=== PATIENT | male | born 1990 | race Caucasian/White ===

== ENCOUNTER 2018-05-19 15:30 | Emergency (ER) | payer BC, OTHER ==
[2018-05-19] MEDS ORDERED: BUPIVACAINE 0.5% PF 10 ML VIAL SUBQ STA (17:07)
--- NOTE | 2018-05-19 18:09 | ED Physician Documentation ---
History of Present Illness - Stated complaint Stated Complaint: FACIAL LACERATION - Chief complaint Chief Complaint: Laceration - History obtained from History obtained from: Patient, Friend - History of Present Illness Timing: Today - Additonal information Additional information: 28-year-old male was using a hole saw to cut a hole in the soffit when the saw caught, torqued, and the saw cut his face on the left lower lip and chin. Review of Systems Constitutional: denies: Fever Eyes: denies: Decreased vision Ears: denies: Ear pain Nose: denies: Congestion Throat: denies: Sore throat Respiratory: denies: Cough GI: denies: Vomiting Skin: reports: Laceration (s) Musculoskeletal: denies: Neck pain, Back pain, Extremity pain PD PAST MEDICAL HISTORY - Past Medical History Past Medical History: Yes Other Past Medical History: idiopathic thrombopenia - Past Surgical History Past Surgical History: Yes Ortho: Other - Present Medications Home Medications: Ambulatory Orders Medication Instructions Recorded Confirmed No Known Home Medications 05/19/18 05/19/18 - Allergies Allergies/Adverse Reactions: Allergies Allergy/AdvReac Type Severity Reaction Status Date / Time tetnus Allergy Hives Uncoded 05/19/18 15:41 - Social History Does the pt smoke?: No Smoking Status: Never smoker Does the pt drink ETOH?: Yes ETOH Use: Beer Does the pt have substance abuse?: No - Immunizations Immunizations are current?: No Immunizations: Other immun not current - POLST Patient has POLST: No PD ED PE NORMAL - Vitals Vital signs reviewed: Yes (hypertensive mild ) - General General: Alert and oriented X 3, No acute distress, Well developed/nourished - HEENT HEENT: PERRL, EOMI, Other (There is an 8cm laceration to the left lower lip and chin with some macerated tissue in the middle of the laceration just below the lip. The laceration does not cross the vermilian border. There is no facial anesthesia and the mental nerve does not appear involved in the laceration ) - Neck Neck: Supple, no meningeal sign, No bony TTP - Respiratory Respiratory: No respiratory distress - Derm Derm: Normal color, Warm and dry, No rash - Extremities Extremities: No deformity, No edema - Neuro Neuro: Alert and oriented X 3, gas meter prover 2-12 intact, No motor deficit, No sensory deficit, Normal speech Eye Opening: Spontaneous Motor: Obeys Commands Verbal: Oriented GCS Score: 15 - Psych Psych: Normal mood, Normal affect Results - Vitals Vitals: Vital Signs - 24 hr 05/19/18 05/19/18 15:37 18:25 Temperature 36.6 C Heart Rate 82 71 Respiratory 16 16 Rate Blood Pressure 154/85 H 139/86 H O2 Saturation 99 98 Oxygen O2 Source Room air Procedures - Laceration (location) face Length in cm: 8 Wound type: Irregular, Into subcut fat, Clean Neurovascular status: Sensory intact, Motor intact, Vascular intact Anesthesia: Marcaine 0.5%, Volume - enter cc (9) Wound Preparation: Hibiclens, Irrigated copiously NS, Wound explored, To the base Skin layer closure: Nylon, Interrupted, Size #-0 - enter number (6-0) Other: Patient tolerated well, No complications, Neurovascular intact. No: Tetanus UTD, Tetanus booster given Complexity: Simple PD MEDICAL DECISION MAKING - ED course Complexity details: considered differential, d/w patient, d/w family ED course: 28-year-old male with a large facial laceration tolerated suturing well and he is allergic to tetanus. He does have ITP and this not did not appear to affect the repair at all. Departure - Departure Disposition: 01 Home, Self Care Clinical Impression: Facial laceration Condition: Stable Instructions: ED Laceration Facial Sutr Tape Follow-Up: [facility] [Provider Group] [facility] [Provider Group] Comments: sutures should be removed in 5-6 days Discharge Date/Time: 05/19/18 18:27
[2018-05-19 18:26] VITALS: BP 139/86
== END 2018-05-19 18:27 | disposition home or self-care (01) ==
LOC: ED 15:30
DX: S01.511A Laceration without foreign body of lip, initial encounter (principal); S01.81XA Laceration without foreign body of other part of head, initial encounter; W27.0XXA Contact with workbench tool, initial encounter; Y93.H3 Activity, building and construction; D69.3 Immune thrombocytopenic purpura
CPT/HCPCS: 12015; 99282; 99283

== ENCOUNTER 2020-05-25 21:03 | Emergency (ER) | payer SELFPAY ==
[2020-05-25 21:13] VITALS: BP 162/91
[2020-05-25] MEDS ORDERED: BUFFERED LIDOCAINE 10 ML SYRINGE SUBQ STA (21:18)
--- NOTE | 2020-05-25 21:19 | ED Physician Documentation ---
PD HPI UPPER EXT INJURY - Stated complaint Stated Complaint: LT FINGER VS TABLE SAW - Chief complaint Chief Complaint: Laceration - History obtained from History obtained from: Patient - History of Present Illness Location: Left (30-year-old gentleman who is not up-to-date on tetanus but has an allergy to the vaccination and therefore refuses it Cut his left third and fourth fingers on a table saw at home prior to arrival.) Review of Systems Constitutional: denies: Fever, Chills Eyes: denies: Loss of vision, Decreased vision PD PAST MEDICAL HISTORY - Past Surgical History Past Surgical History: Yes Ortho: Other - Present Medications Home Medications: Ambulatory Orders Medication Instructions Recorded Confirmed No Known Home Medications 05/19/18 05/19/18 - Allergies Allergies/Adverse Reactions: Allergies Allergy/AdvReac Type Severity Reaction Status Date / Time tetnus Allergy Hives Uncoded 05/25/20 21:12 - Social History Does the pt smoke?: No Smoking Status: Never smoker Does the pt drink ETOH?: Yes Does the pt have substance abuse?: No - Immunizations Immunizations are current?: No Immunizations: Other immun not current - POLST Patient has POLST: No PD ED PE NORMAL - Vitals Vital signs reviewed: Yes - General General: Alert and oriented X 3, No acute distress - Extremities Extremities: Other (There is really just an abrasion on the pad of the fourth finger, there is a less than 1 cm laceration on the pulp of the third finger. Normal neurovascular function of the tips.) - Neuro Neuro: Alert and oriented X 3, Normal speech Results - Vitals Vitals: Vital Signs - 24 hr 05/25/20 21:10 Temperature 36.6 C Heart Rate 75 Respiratory 18 Rate Blood Pressure 162/91 H O2 Saturation 99 Oxygen O2 Source Room air Procedures - Laceration (location) Left 3rd finger Length in cm: 1 Wound type: Irregular, Into subcut fat Neurovascular status: Sensory intact, Motor intact, Vascular intact Anesthesia: Lidocaine 1%, With bicarb Skin layer closure: Nylon, Interrupted, Size #-0 - enter number (4-0), Sutures - enter # (4) Complexity: Simple Departure - Departure Disposition: 01 Home, Self Care Clinical Impression: Finger laceration Qualifiers: Encounter type: initial encounter Finger: middle finger Damage to nail status: with damage Foreign body presence: without foreign body Laterality: left Qualif ied Code(s): S61.313A - Laceration without foreign body of left middle finger with damage to nail, initial encounter Condition: Good Record reviewed to determine appropriate education?: Yes Instructions: ED Laceration Hand Comments: For the [place] wound on the ring finger, keep it covered with a dressing and Use the antibiotic ointment to keep it moist. Come back for any signs of infection which would include: Redness, swelling, drainage, increased pain, or fevers. You can wash it soap and water. Keep it covered and moist with bacitracin ointment which is available over the counter; avoid neosporin. Follow-up with your physician in 14 days for suture removal.
[2020-05-25] MEDS ORDERED: BACITRACIN ZINC OINT 1 PACKET TOP STA (21:43)
== END 2020-05-25 21:58 | disposition home or self-care (01) ==
LOC: ED 21:03
DX: S61.313A Laceration without foreign body of left middle finger with damage to nail, initial encounter (principal); S60.415A Abrasion of left ring finger, initial encounter; W31.2XXA Contact with powered woodworking and forming machines, initial encounter; Y93.89 Activity, other specified; Y92.009 Unspecified place in unspecified non-institutional (private) residence as the place of occurrence of the external cause; Z88.8 Allergy status to other drugs, medicaments and biological substances
CPT/HCPCS: 12001; 99282; A9270